=== PATIENT | female | born 1935 | race African-American/Black ===

== ENCOUNTER → 2019-01-18 | Outpatient (CLI) | payer OTHER ==
[~2019-01-18] VITALS: Ht 154.9 cm; Wt 104.3 kg
[~2019-01-18] MED LIST: ACCUNEB SO1.25 MG/1 INH; ADULT LOW DOSE81 MG PO; AMLODIPINE BESY10 MG PO; ARTHRITIS PAIN650 M2; ARTHRITIS PAIN650 M2 PO; ASPIR 8181 MG PO; CALCITRIOL0.25 MCG PO; CEFADROXIL 500500 M1 PO; CENTRUM SILVER1 EAC1 PO; CLONIDINE PO; HYDROCHLOROTHIA25 M1 PO; HYDROCODONE-AP1 EA11 PO; LISINOPRIL40 MG PO; LOVASTAT40 PO; PRILOSEC 20 MG20 MG PO; SYNTHROID100 MC1 PO; TAPAZOLE10 MG PO; TRAMADOL 50 MG50 MG PO; TUMS PO; ZETIA10 MG PO
[2019-01-18 11:20] VITALS: BP 159/82
[2019-01-18 11:22] LABS: HEMATOCRIT 40.1 % (37.0-47.0); HEMOGLOBIN 13.4 gm/dL (12.0-15.0); MCH 29.5 pg (26.0-34.0); MCHC 33.4 g/dL (28.0-37.0); MCV 88.3 fL (80.0-100.0); RBC 4.54 mil/uL (4.20-5.00); RDW 13.9 % (10.5-14.5); WBC 4.1 thou/uL (4.0-11.0)
[2019-01-18 11:28] LABS: CALCIUM 10.1 mg/dL (8.5-10.1); CREATININE 0.9 mg/dL (0.6-1.0); POTASSIUM 3.6 mmol/L (3.5-5.1)
== END | disposition home or self-care (01) ==
LOC: SPEC 10:19
PROVIDERS: Nuclear Medicine Nuclear Cardiology
DX: I70.213 Atherosclerosis of native arteries of extremities with intermittent claudication, bilateral legs (principal); I70.1 Atherosclerosis of renal artery; I10 Essential (primary) hypertension; E78.5 Hyperlipidemia, unspecified; E66.09 Other obesity due to excess calories; K21.9 Gastro-esophageal reflux disease without esophagitis; Z98.890 Other specified postprocedural states; Z79.899 Other long term (current) drug therapy; Z87.891 Personal history of nicotine dependence
CPT/HCPCS: 70005

== ENCOUNTER → 2019-01-29 | Outpatient (CLI) | payer OTHER ==
[~2019-01-29] VITALS: Ht 180.3 cm; Wt 104.3 kg
[2019-01-29 07:36] VITALS: BP 166/69
== END | disposition home or self-care (01) ==
LOC: SPEC 07:07
DX: I70.212 Atherosclerosis of native arteries of extremities with intermittent claudication, left leg (principal); K21.9 Gastro-esophageal reflux disease without esophagitis; I10 Essential (primary) hypertension; J45.909 Unspecified asthma, uncomplicated; Z98.890 Other specified postprocedural states; E78.5 Hyperlipidemia, unspecified; E66.9 Obesity, unspecified; I70.1 Atherosclerosis of renal artery; I74.3 Embolism and thrombosis of arteries of the lower extremities

== ENCOUNTER → 2019-11-27 | Outpatient (CLI) | payer OTHER ==
[~2019-11-27] MED LIST changes: +CRESTOR10 MG PO; +PLAVIX 75 MG TA75 MG PO
== END ==
LOC: SJCVCIMAG 08:36
DX: I70.203 Unspecified atherosclerosis of native arteries of extremities, bilateral legs (principal); I10 Essential (primary) hypertension; E78.00 Pure hypercholesterolemia, unspecified; Z79.82 Long term (current) use of aspirin; Z95.820 Peripheral vascular angioplasty status with implants and grafts; Z87.891 Personal history of nicotine dependence; Z79.899 Other long term (current) drug therapy

== ENCOUNTER → 2019-12-10 | Outpatient (CLI) | payer OTHER ==
[~2019-12-10] VITALS: Ht 154.9 cm; Wt 102.0 kg
[2019-12-10 09:37] VITALS: BP 178/88
[2019-12-10 09:47] LABS: HEMOGLOBIN 13.5 gm/dL (12.0-15.0); MCH 29.5 pg (26.0-34.0); MCHC 33.7 g/dL (28.0-37.0); MCV 87.5 fL (80.0-100.0); RBC 4.57 mil/uL (4.20-5.00); WBC 4.2 thou/uL (4.0-11.0)
[2019-12-10 10:04] LABS: CALCIUM 10.1 mg/dL (8.5-10.1); CREATININE 0.8 mg/dL (0.6-1.0); POTASSIUM 4.1 mmol/L (3.5-5.1)
== END | disposition home or self-care (01) ==
LOC: CATH 08:34
PROVIDERS: Nuclear Medicine Nuclear Cardiology
DX: I70.211 Atherosclerosis of native arteries of extremities with intermittent claudication, right leg (principal); I70.1 Atherosclerosis of renal artery; I10 Essential (primary) hypertension; I25.10 Atherosclerotic heart disease of native coronary artery without angina pectoris; K21.9 Gastro-esophageal reflux disease without esophagitis; E78.5 Hyperlipidemia, unspecified; E66.09 Other obesity due to excess calories; Z98.890 Other specified postprocedural states; Z79.899 Other long term (current) drug therapy; Z88.8 Allergy status to other drugs, medicaments and biological substances